=== PATIENT | female | born 1990 | race Caucasian/White ===

== ENCOUNTER 2017-02-26 16:06 | Emergency (ER) | payer BC, OTHER ==
[2017-02-26 16:17] VITALS: BP 123/51
--- NOTE | 2017-02-26 16:32 | UC ---
Skin Complaint HPI - HPI Summary HPI Summary: Increasingly red, sore area on L buttock starting 2 days ago. Started as a small itchy spot like a mosquito bite. Had R buttock MRSA abscess 2 months ago, had to follow up with wound care because of large area of debridement. Denies recent fever or drainage from the area. - History of Current Complaint Chief Complaint: UCSkin Time Seen by Provider: 02/26/17 16:16 Stated Complaint: INSECT BITE/ABSCESS Hx Obtained From: Patient Hx Last Menstrual Period: 2 WKS AGO ?: No Onset/Duration: Gradual Onset, Lasting Days Timing: Constant Onset Severity: Mild Current Severity: Moderate Location: Discrete Character: Pain, Redness Aggravating: Touch Alleviating: Nothing Associated Signs & Symptoms: Positive: Rash - Allergy/Home Medications Allergies/Adverse Reactions: Allergies Allergy/AdvReac Type Severity Reaction Status Date / Time Penicillins Allergy Rash Verified 02/26/17 16:17 Home Medications: Home Medications Bcp 1 tab PO DAILY 02/26/17 [History] Review of Systems Constitutional: Negative Skin: Rash Eyes: Negative ENT: Negative Respiratory: Negative Cardiovascular: Negative Gastrointestinal: Negative Genitourinary: Negative Motor: Negative Neurovascular: Negative Musculoskeletal: Negative Neurological: Negative Psychological: Negative All Other Systems Reviewed And Are Negative: Yes PMH/Surg Hx/FS Hx/Imm Hx - Additional Past Medical History Additional PMH: Had MRSA abscess December 2016 - Surgical History Surgical History: Yes Surgery Procedure, Year, and Place: WISDOM TEETH EXTRACTION - Family History Known Family History: Positive: Hypertension - Social History Occupation: Employed Full-time - RN Lives: With Family Alcohol Use: Occasionally Substance Use Type: None Smoking Status (MU): Never Smoked Tobacco Physical Exam Triage Information Reviewed: Yes Appearance: Well-Appearing, No Pain Distress, Well-Nourished Vital Signs: Initial Vital Signs Temp 98.2 F 02/26/17 16:10 Pulse 77 02/26/17 16:10 Resp 16 02/26/17 16:10 BP 123/51 02/26/17 16:10 Pulse Ox 100 02/26/17 16:10 Vital Signs Reviewed: Yes Eye Exam: Normal, Other - PERRL Eyes: Positive: Conjunctiva Clear ENT Exam: Normal ENT: Positive: Normal ENT inspection, Hearing grossly normal, Pharynx normal, TMs normal Dental Exam: Normal Neck exam: Normal Neck: Positive: Supple, Nontender, No Lymphadenopathy Respiratory Exam: Normal Respiratory: Positive: Chest non-tender, Lungs clear, Normal breath sounds, No respiratory distress, No accessory muscle use Cardiovascular Exam: Normal Cardiovascular: Positive: RRR, No Murmur Musculoskeletal Exam: Normal Neurological Exam: Normal Psychological Exam: Normal Skin Exam: Other - oval erythematous area on L buttock 6cm x 4cm, no fluctuance or induration. Small scab in the middle. Course/Dx - Diagnoses Provider Diagnoses: L buttock cellulitis. elevated blood pressure due to discomfort Discharge - Discharge Plan Condition: Stable Disposition: HOME Prescriptions: Sulfamethox/Trimethoprim DS* [Bactrim DS 800/160 TAB*] 1 tab PO BID #14 tab Patient Education Materials: Cellulitis (ED) Referrals: Elysia Verma MD [Primary Care Provider] - 3 Days Additional Instructions: If you have fever, severe pain, or marked worsening, please return here or go to the hospital for a recheck.
== END 2017-02-26 16:33 | disposition home or self-care (01) ==
LOC: UCCORT 16:06
DX: L03.317 Cellulitis of buttock (principal); R03.0 Elevated blood-pressure reading, without diagnosis of hypertension; Z88.0 Allergy status to penicillin
CPT/HCPCS: 99212; G0463

== ENCOUNTER 2017-02-28 16:09 | Emergency (ER) | payer BC ==
[2017-02-28] MEDS ORDERED: Lidocaine 2% EPI 1:200000 MPF* 20 ML VIAL INJ ONE (17:30)
[2017-02-28] MEDS ORDERED: Lidocaine 2% W/EPI 1:100,000* 20 ML MDV ONE (17:34)
--- NOTE | 2017-02-28 17:44 | UC ---
Skin Complaint HPI - HPI Summary HPI Summary: 26 yo female presents here to have left buttock /upper thigh abscess drained on bactrim x 2 days no f/c no myalgias hx MRSA - History of Current Complaint Chief Complaint: UCSkin Time Seen by Provider: 02/28/17 17:03 Stated Complaint: RE CHECK CELLULITIS Hx Last Menstrual Period: 02/08/17 Onset/Duration: Sudden Onset, Gradual Onset, Lasting Days Timing: Constant Onset Severity: Moderate Pain Intensity: 6 Pain Scale Used: 0-10 Numeric Location: Discrete, Other - left buttock Character: Swelling, Redness, Raised, Painful Aggravating: Touch Alleviating: Nothing Associated Signs & Symptoms: Positive: Drainage, Tenderness - Allergy/Home Medications Allergies/Adverse Reactions: Allergies Allergy/AdvReac Type Severity Reaction Status Date / Time Penicillins Allergy Rash Verified 02/28/17 17:04 Review of Systems Constitutional: Negative Skin: Negative Eyes: Negative ENT: Negative Respiratory: Negative Cardiovascular: Negative Gastrointestinal: Negative Genitourinary: Negative Motor: Negative Neurovascular: Negative Musculoskeletal: Negative Neurological: Negative Psychological: Negative All Other Systems Reviewed And Are Negative: Yes PMH/Surg Hx/FS Hx/Imm Hx Previously Healthy: Yes - Surgical History Surgical History: Yes Surgery Procedure, Year, and Place: WISDOM TEETH EXTRACTION - Family History Known Family History: Positive: Hypertension - Social History Alcohol Use: Occasionally Substance Use Type: None Smoking Status (MU): Never Smoked Tobacco - Immunization History Most Recent Influenza Vaccination: 2016 Most Recent Tetanus Shot: UTD Physical Exam Triage Information Reviewed: Yes Appearance: Well-Appearing, No Pain Distress, Well-Nourished Vital Signs: Initial Vital Signs Temp 97.3 F 02/28/17 17:05 Pulse 69 02/28/17 17:05 Resp 18 02/28/17 17:05 BP 110/68 02/28/17 17:05 Pulse Ox 100 02/28/17 17:05 Vital Signs Reviewed: Yes Eyes: Positive: Conjunctiva Clear ENT: Positive: Hearing grossly normal. Negative: Nasal congestion, Nasal drainage, Trismus, Muffled/hoarse voice Neck: Positive: Supple Respiratory: Positive: Lungs clear, Normal breath sounds, No respiratory distress Cardiovascular: Positive: RRR, No Murmur Musculoskeletal: Positive: ROM Intact, No Edema Neurological Exam: Normal Neurological: Positive: Alert Psychological Exam: Normal Skin Exam: Other - see image Course/Dx - Diagnoses Provider Diagnoses: abscess left buttock with overlying cellulitis Procedures - Procedure Summary Procedure Summary: Time out sterile prep anesth with 3cc lid/epi incised with 11 blade about one cc of pus expressed tolerated procedure well culture obtained steril drssing applied - Incision and Drainage Site: left buttock Anesthesia: Lidocaine Instrument(s): Scalpel Packing: Other - dressing applied Discharge - Discharge Plan Condition: Stable Disposition: HOME Patient Education Materials: Abscess (ED) Referrals: DAVID Courtney [Primary Care Provider] - Additional Instructions: frequent warm soapy compresses or sitz bath recheck for new or worsening symptoms I suggest you get rechecked in 48-72 hours you may return here if unable to get in to see your MD continue antibiotic one pill twice a day we gave yo a double dose tonight Images Front/Back of Body, Lg ([place]): 1 - abscess
[2017-02-28] MEDS ORDERED: Sulfamethox/Trimethoprim DS 800/160* TAB PO ONE (18:02)
[2017-02-28 18:25] VITALS: BP 110/68
--- NOTE | 2017-03-02 10:06 | UC ---
Progress - Progress Note Progress Note: please call the pt. with the culture results + MRSA cont. with Bactrim , follow up with your pcp if not better
== END 2017-02-28 18:27 | disposition home or self-care (01) ==
LOC: UCCORT 16:09
DX: L02.31 Cutaneous abscess of buttock (principal); L03.317 Cellulitis of buttock; Z88.0 Allergy status to penicillin; B95.62 Methicillin resistant Staphylococcus aureus infection as the cause of diseases classified elsewhere
CPT/HCPCS: 10060; 87070; 87077; 87186; 87205; 87640; 87641; 99212; A9270-GY; G0463

== ENCOUNTER → 2018-02-04 14:26 | Emergency (ER) | payer SELFPAY ==
[~2018-02-04 14:26] MED LIST: PPD test dose* 5 TU/0.1 ML TEST (*USE PPD ORDER SET*) ONE
--- NOTE | 2018-02-04 14:48 | UC ---
UC General HPI - History of Current Complaint Stated Complaint: NEEDS PPD Time Seen by Provider: 02/04/18 14:45 Hx Last Menstrual Period: 2 WKS AGO - Allergy/Home Medications Allergies/Adverse Reactions: Allergies Allergy/AdvReac Type Severity Reaction Status Date / Time MS Penicillins [Penicillins] Allergy Rash Verified 02/28/17 17:04 PMH/Surg Hx/FS Hx/Imm Hx - Surgical History Surgical History: Yes Surgery Procedure, Year, and Place: WISDOM TEETH EXTRACTION - Family History Known Family History: Positive: Hypertension - Social History Alcohol Use: Occasionally Substance Use Type: None Smoking Status (MU): Never Smoked Tobacco - Immunization History Most Recent Influenza Vaccination: 2016 Most Recent Tetanus Shot: UTD Discharge - Discharge Plan Referrals: Ellis Vargas PA [Primary Care Provider] -
== END | disposition home or self-care (01) ==
LOC: OHCORT 14:26
DX: R76.11 Nonspecific reaction to tuberculin skin test without active tuberculosis (principal)